=== PATIENT | female | born 1975 ===

== ENCOUNTER 2022-10-19 15:30 | Inpatient (IN) | payer OTHER ==
[~2022-10-19] VITALS: Ht 162.6 cm; Wt 76.2 kg
[~2022-10-19 15:30] MED LIST: CALCIUM500 M1 PO; D3 + K2 DOTS 11 EACH PO; OCUVITE EYE HE1 EACH PO; TAMOXIFEN CITRA20 MG PO
== END 2022-10-21 11:44 | disposition home or self-care (01) | DRG 581 ==
LOC: SURG 15:30 → O/R 10-20 12:20 → SURH 10-20 12:20
PROVIDERS: ADMIT Specialist; ATTEND Specialist
PROC: 0J0L0ZZ Alteration of Right Upper Leg Subcutaneous Tissue and Fascia, Open Approach (ICD-10-PCS; 2022-10-20)
PROC: 0J0M0ZZ Alteration of Left Upper Leg Subcutaneous Tissue and Fascia, Open Approach (ICD-10-PCS; principal; 2022-10-20 16:00)
DX: L98.7 Excessive and redundant skin and subcutaneous tissue (principal); Z20.822 Contact with and (suspected) exposure to COVID-19